=== PATIENT | male | born 1945 | race Caucasian/White ===

== ENCOUNTER 2020-10-21 06:31 | Inpatient (IN) | payer MEDICARE, OTHER ==
[2020-10-21 07:21] LABS: #Lymphocytes 0.8 thou/uL (1.20-3.40); #Monocytes 0.6 thou/uL (0.11-0.59); #Neutrophils 5.9 thou/uL (1.40-6.50); %Basophils 0.1 % (0.0-1.0); %Eosinophils 0.2 % (0.0-10.0); %Lymphocytes 11.1 % (21.0-51.0); %Monocytes 7.7 % (0.0-10.0); Hemoglobin 11.9 g/dL (14.0-18.0); Mean Corpuscular HGB CONC 34.4 g/dL (32.0-36.0); Mean Corpuscular Hemoglobin 31.7 pg (27.0-31.0); Mean Corpuscular Volume 92.2 fL (78.0-98.0); Mean Platelet Volume 6.2 fL (7.4-10.4); Platelet Count 289 thou/uL (130-400); Red Blood Cell (RBC) Count 3.75 mill/uL (4.70-6.10); White Blood Cell (WBC) Count 7.3 thou/uL (4.8-10.8)
[2020-10-21 08:03] LABS: ALT (SGPT) 29 U/L (8-55); AST (SGOT) 27 U/L (5-34); Albumin 3.2 g/dL (3.4-4.8); Alkaline Phosphatase 85 U/L (40-110); Anion Gap 14 mmol/L (10-20); BUN (Urea Nitrogen) 12 mg/dL (8.4-25.7); Bilirubin, Total 0.7 mg/dL (0.2-1.2); Calc. Creatinine Clearance 0 mL/min (70-130); Calcium 8.6 mg/dL (7.8-10.44); Carbon Dioxide 28 mmol/L (23-31); Chloride 90 mmol/L (98-107); Globulin 3.7 g/dL (2.4-3.5); Glucose 104 mg/dL (83-110); Potassium 4.2 mmol/L (3.5-5.1); Protein, Total 6.9 g/dL (5.8-8.1); Sodium 128 mmol/L (136-145)
[2020-10-21 08:17] LABS: INR-International Normal Ratio 2.1; Prothrombin Time 24.4 sec (12.0-14.7)
[2020-10-21 08:18] LABS: PTT 46.6 sec (22.9-36.1)
[2020-10-21] MEDS ORDERED: Cefepime 2 GM VIAL ONE (10:27)
[2020-10-21] MEDS ORDERED: Acetaminophen 325 MG TAB PO PRN (10:56)
[2020-10-21] MEDS ORDERED: Sodium Chloride 0.9% 1,000 ML IV SCH ×2 (11:00→11:48)
[2020-10-21] MEDS ORDERED: Ondansetron ODT 4 MG TAB PO PRN (12:17)
[2020-10-21] MEDS ORDERED: Ondansetron PF 4 MG/2 ML Vial IVP PRN (12:17)
[2020-10-21 13:52] VITALS: BMI 18.5
[2020-10-21 14:17] LABS: Anion Gap 13 mmol/L (10-20); BUN (Urea Nitrogen) 10 mg/dL (8.4-25.7); Calc. Creatinine Clearance 89 mL/min (70-130); Calcium 8.3 mg/dL (7.8-10.44); Carbon Dioxide 29 mmol/L (23-31); Chloride 92 mmol/L (98-107); Glucose 168 mg/dL (83-110); Potassium 3.9 mmol/L (3.5-5.1); Sodium 130 mmol/L (136-145)
[2020-10-21] MEDS ORDERED: Melatonin 3 MG TAB PO PRN (17:46)
[2020-10-21 18:02] LABS: SARS-CoV-2 PCR by NAA Not Detected (NotDetected)
[2020-10-21] MEDS ORDERED: Furosemide 40 MG TAB PO SCH (19:45)
[2020-10-21] MEDS ORDERED: Nitroglycerin 2% Ointment 1 INCH/1 GM Packet ONE (19:58)
[2020-10-21] MEDS ORDERED: Furosemide 40 MG/4 ML VIAL SLOW IVP SCH (20:00)
[2020-10-21] MEDS ORDERED: Nitroglycerin 2% Ointment 1 INCH/1 GM Packet TOP SCH (20:00)
[2020-10-21] MEDS ORDERED: methylPREDNISolone Sod Succ 40 MG VIAL IVP SCH (20:15)
[2020-10-21 20:32] LABS: #Lymphocytes 2.3 thou/uL (1.20-3.40); #Monocytes 0.4 thou/uL (0.11-0.59); #Neutrophils 15.3 thou/uL (1.40-6.50); %Basophils 0.1 % (0.0-1.0); %Eosinophils 0.1 % (0.0-10.0); %Lymphocytes 12.7 % (21.0-51.0); %Monocytes 2.4 % (0.0-10.0); %Neutrophils 84.6 % (42.0-75.0); Hemoglobin 12.4 g/dL (14.0-18.0); Mean Corpuscular HGB CONC 33.5 g/dL (32.0-36.0); Mean Corpuscular Hemoglobin 30.8 pg (27.0-31.0); Mean Corpuscular Volume 91.8 fL (78.0-98.0); Mean Platelet Volume 6.1 fL (7.4-10.4); Platelet Count 425 thou/uL (130-400); RBC Distribution Width 12.1 % (11.5-14.5); Red Blood Cell (RBC) Count 4.02 mill/uL (4.70-6.10); White Blood Cell (WBC) Count 18.1 thou/uL (4.8-10.8)
[2020-10-21 20:44] LABS: Anion Gap 17 mmol/L (10-20); BUN (Urea Nitrogen) 13 mg/dL (8.4-25.7); Calc. Creatinine Clearance 89 mL/min (70-130); Calcium 8.1 mg/dL (7.8-10.44); Carbon Dioxide 23 mmol/L (23-31); Chloride 92 mmol/L (98-107); Glucose 127 mg/dL (83-110); Potassium 4.4 mmol/L (3.5-5.1); Sodium 128 mmol/L (136-145)
[2020-10-21] MEDS ORDERED: Clindamycin/D5W 600 MG in Premix Bag 1 BAG IVPB SCH (20:45)
[2020-10-21 20:50] LABS: Troponin I 0.019 ng/mL (< 0.028)
[2020-10-21] MEDS ORDERED: guaiFENesin ER 600 MG TAB PO SCH (21:00)
[2020-10-21] MEDS ORDERED: Vancomycin 1.5 GRAM/300 ML BAG 1.5 GM in Premix Bag 1 BAG IVPB SCH (21:15)
[2020-10-21 21:19] LABS: CO2 Tension 46.2 mmHg (35.0-45.0); Calcium, Ionized (arterial) 1.11 mmol/L (1.12-1.30); Carboxyhemoglobin (COHb) 0.6 gm% (0.0-3.0); Hemoglobin (Hb) 11.8 g/dL (14.0-18.0); O2 Tension (PaO2), arterial 61.1 mmHg (> 70.0); Potassium - ABG Lab 4.07 mmol/L (3.70-5.30); pH, Arterial 7.44 (7.35-7.45)
[2020-10-21 21:20] LABS: Puncture Site LRA
[2020-10-21] MEDS: Piperacillin/Tazobactam 3.375 GM in Sodium Chloride 0.9% 100 ML IVPB SCH (21:52)
[2020-10-21 23:17] LABS: Lactic Acid 1.2 mmol/L (0.5-2.2)
[2020-10-21] MEDS ORDERED: Melatonin 3 MG TAB PER TUBE PRN (23:37)
[2020-10-21] MEDS ORDERED: GUAIFENESIN SF SOLN 200 MG/10 ML UDCUP PO PRN (23:58)
[2020-10-22] MEDS ORDERED: GUAIFENESIN SF SOLN 200 MG/10 ML UDCUP PER TUBE PRN (00:15)
[2020-10-22] MEDS: Piperacillin/Tazobactam 3.375 GM in Sodium Chloride 0.9% 100 ML IVPB SCH ×4 (04:31→21:47)
[2020-10-22] MEDS: Vancomycin 1 GM in Premix Bag 1 BAG IVPB SCH ×3 (05:42→21:47)
[2020-10-22 07:23] LABS: Band 59 % (5-11); Lymphocytes 3 % (21-51); MDiff Complete? YES; Mean Corpuscular HGB CONC 32.9 g/dL (32.0-36.0); Mean Corpuscular Hemoglobin 30.2 pg (27.0-31.0); Mean Corpuscular Volume 91.9 fL (78.0-98.0); Mean Platelet Volume 6.3 fL (7.4-10.4); Metamyelocyte 1 % (0-0); Monocytes 3 % (0-10); Neutrophil 31 % (42-75); Platelet Count 256 thou/uL (130-400); Platelet Morphology Comment Appears Adequate; Polychromasia SLIGHT = 2-3 cells (100X) (0-2/hpf); Reactive Lymphocytes 3 % (0-10); Red Blood Cell (RBC) Count 3.63 mill/uL (4.70-6.10); Reflex for Review?? YES; Vacuoles MODERATE; White Blood Cell (WBC) Count 13.6 thou/uL (4.8-10.8)
[2020-10-22] MEDS: Saccharomyces boulardii 250 MG CAP PER TUBE SCH (08:14)
[2020-10-22] MEDS ORDERED: methylPREDNISolone Sod Succ 40 MG VIAL IVP SCH ×2 (09:00→10:30)
[2020-10-22] MEDS ORDERED: Saccharomyces boulardii 250 MG CAP PO SCH (09:00)
[2020-10-22 09:50] LABS: Prothrombin Time 31.6 sec (12.0-14.7)
[2020-10-22] MEDS: Warfarin Sodium 5 MG TAB PER TUBE SCH (16:14)
[2020-10-22] MEDS ORDERED: Warfarin Sodium 5 MG TAB PO SCH (17:00)
[2020-10-22 21:20] LABS: Vancomycin, Trough 15.7 ug/mL
[2020-10-23] MEDS: Vancomycin 1 GM in Premix Bag 1 BAG IVPB SCH (05:14)
[2020-10-23] MEDS: Piperacillin/Tazobactam 3.375 GM in Sodium Chloride 0.9% 100 ML IVPB SCH ×4 (05:14→22:34)
[2020-10-23 06:21] LABS: #Lymphocytes 0.5 thou/uL (1.20-3.40); #Monocytes 0.3 thou/uL (0.11-0.59); #Neutrophils 14.6 thou/uL (1.40-6.50); %Lymphocytes 3.2 % (21.0-51.0); %Neutrophils 94.7 % (42.0-75.0); Mean Corpuscular HGB CONC 33.1 g/dL (32.0-36.0); Mean Corpuscular Hemoglobin 30.1 pg (27.0-31.0); Mean Corpuscular Volume 90.9 fL (78.0-98.0); Mean Platelet Volume 6.5 fL (7.4-10.4); Platelet Count 264 thou/uL (130-400); Red Blood Cell (RBC) Count 3.64 mill/uL (4.70-6.10); White Blood Cell (WBC) Count 15.4 thou/uL (4.8-10.8)
[2020-10-23 06:42] LABS: Anion Gap 12 mmol/L (10-20); BUN (Urea Nitrogen) 15 mg/dL (8.4-25.7); Calc. Creatinine Clearance 101 mL/min (70-130); Calcium 8.7 mg/dL (7.8-10.44); Carbon Dioxide 33 mmol/L (23-31); Chloride 87 mmol/L (98-107); Glucose 128 mg/dL (83-110); Potassium 4.2 mmol/L (3.5-5.1); Sodium 128 mmol/L (136-145)
[2020-10-23 09:20] LABS: INR-International Normal Ratio 2.8; Prothrombin Time 30.3 sec (12.0-14.7)
[2020-10-23] MEDS: Saccharomyces boulardii 250 MG CAP PER TUBE SCH (10:39)
[2020-10-23] MEDS: methylPREDNISolone Sod Succ 40 MG VIAL IVP SCH (10:39)
[2020-10-23] MEDS: Warfarin Sodium 5 MG TAB PER TUBE SCH (17:15)
[2020-10-24 04:02] LABS: #Lymphocytes 0.5 thou/uL (1.20-3.40); #Monocytes 0.3 thou/uL (0.11-0.59); #Neutrophils 10.6 thou/uL (1.40-6.50); %Basophils 0.1 % (0.0-1.0); %Lymphocytes 4.2 % (21.0-51.0); %Monocytes 2.8 % (0.0-10.0); %Neutrophils 92.9 % (42.0-75.0); Hemoglobin 10.8 g/dL (14.0-18.0); Mean Corpuscular HGB CONC 33.9 g/dL (32.0-36.0); Mean Corpuscular Hemoglobin 30.9 pg (27.0-31.0); Mean Corpuscular Volume 91.1 fL (78.0-98.0); Mean Platelet Volume 6.4 fL (7.4-10.4); Platelet Count 254 thou/uL (130-400); RBC Distribution Width 12.1 % (11.5-14.5); White Blood Cell (WBC) Count 11.4 thou/uL (4.8-10.8)
[2020-10-24] MEDS: Piperacillin/Tazobactam 3.375 GM in Sodium Chloride 0.9% 100 ML IVPB SCH ×2 (04:40→09:55)
[2020-10-24] MEDS: Acetaminophen 650 MG/20.3 ML UDCUP PER TUBE PRN ×2 (05:22→19:56)
[2020-10-24 09:32] LABS: INR-International Normal Ratio 3.1
[2020-10-24] MEDS: Saccharomyces boulardii 250 MG CAP PER TUBE SCH (09:55)
[2020-10-24] MEDS: methylPREDNISolone Sod Succ 40 MG VIAL IVP SCH (09:55)
[2020-10-24] MEDS: Warfarin Sodium 5 MG TAB PER TUBE SCH (19:23)
[2020-10-24] MEDS: Amoxicillin/Potassium Clav 600 mg/5 ml Oral Suspension PO SCH (19:56)
[2020-10-25] MEDS: Acetaminophen 650 MG/20.3 ML UDCUP PER TUBE PRN (03:12)
[2020-10-25 08:28] VITALS: BP 109/61; TEMP 98
[2020-10-25] MEDS: methylPREDNISolone Sod Succ 40 MG VIAL IVP SCH (09:27)
[2020-10-25] MEDS: Saccharomyces boulardii 250 MG CAP PER TUBE SCH (09:27)
[2020-10-25] MEDS: Amoxicillin/Potassium Clav 600 mg/5 ml Oral Suspension PO SCH (09:27)
[2020-10-25 09:39] LABS: Prothrombin Time 46.2 sec (12.0-14.7)
[2020-10-25 09:46] LABS: INR-International Normal Ratio 4.8
== END 2020-10-25 12:35 | disposition home or self-care (01) | DRG 177 ==
LOC: ERS 06:31 → ONC 11:58 → CCU 21:13 → ONC 10-22 16:50
PROVIDERS: ADMIT Internal Medicine; ATTEND Internal Medicine
DX: J69.0 Pneumonitis due to inhalation of food and vomit (principal); J96.01 Acute respiratory failure with hypoxia; E87.1 Hypo-osmolality and hyponatremia; Z20.822 Contact with and (suspected) exposure to COVID-19; I95.1 Orthostatic hypotension; I10 Essential (primary) hypertension; I48.0 Paroxysmal atrial fibrillation; C76.0 Malignant neoplasm of head, face and neck; G47.30 Sleep apnea, unspecified; B18.2 Chronic viral hepatitis C; K21.9 Gastro-esophageal reflux disease without esophagitis; Z92.3 Personal history of irradiation; Z92.21 Personal history of antineoplastic chemotherapy; Z79.02 Long term (current) use of antithrombotics/antiplatelets; Z79.899 Other long term (current) drug therapy; Z85.810 Personal history of malignant neoplasm of tongue; Z90.49 Acquired absence of other specified parts of digestive tract
CPT/HCPCS: 36415; 36600; 71045; 80048; 80053; 80202; 82805; 83605; 83880; 84484; 85025; 85060; 85610; 85730; 87040; 87070; 87205; 87635; 93005; 93010; 94640; 96374; J0692; J1940; J1956; J2543; J2920; J3370; J3490; J7620; U0003; U0005

== ENCOUNTER 2020-10-27 21:35 | Inpatient (IN) | payer MEDICARE ==
[2020-10-27 22:30] LABS: Mean Corpuscular HGB CONC 34.2 g/dL (32.0-36.0); Mean Corpuscular Volume 93.5 fL (78.0-98.0); Mean Platelet Volume 7.2 fL (7.4-10.4); Platelet Count 265 thou/uL (130-400); RBC Distribution Width 12.6 % (11.5-14.5); Red Blood Cell (RBC) Count 3.76 mill/uL (4.70-6.10); White Blood Cell (WBC) Count 10.3 thou/uL (4.8-10.8)
[2020-10-27 22:45] LABS: Band 4 % (5-11); Lymphocytes 6 % (21-51); MDiff Complete? YES; Monocytes 11 % (0-10); Neutrophil 78 % (42-75); Reactive Lymphocytes 1 % (0-10)
[2020-10-27 23:02] LABS: INR-International Normal Ratio 1.9; PTT 40.1 sec (22.9-36.1); Prothrombin Time 22.2 sec (12.0-14.7)
[2020-10-27 23:47] LABS: Calcium 8.1 mg/dL (7.8-10.44); Chloride 94 mmol/L (98-107); Potassium 3.9 mmol/L (3.5-5.1); Sodium 133 mmol/L (136-145)
[2020-10-27 23:48] LABS: Glucose 127 mg/dL (83-110)
[2020-10-27 23:50] LABS: Anion Gap 14 mmol/L (10-20); Bilirubin, Total 0.8 mg/dL (0.2-1.2); Carbon Dioxide 29 mmol/L (23-31)
[2020-10-27 23:51] LABS: Alkaline Phosphatase 63 U/L (40-110); Calc. Creatinine Clearance 0 mL/min (70-130)
[2020-10-27 23:52] LABS: BUN (Urea Nitrogen) 16 mg/dL (8.4-25.7)
[2020-10-27 23:53] LABS: AST (SGOT) 22 U/L (5-34)
[2020-10-27 23:54] LABS: ALT (SGPT) 47 U/L (8-55)
[2020-10-28 01:30] LABS: Bilirubin Negative (Negative); Blood, Urine Negative (Negative); Clarity Clear (Clear); Glucose, Urine (Dipstick) Normal (Negative); Ketone, Urine Negative (Negative); Leukocyte Negative Leu/uL (Negative); Nitrite Negative (Negative); Protein, Urine (Dipstick) Negative (Neg-Trace); Specific Gravity, Urine 1.008 (1.002-1.036); Urobilinogen Normal mg/dL (Less than 2); pH, Urine 7.5 (5.0-9.0)
[2020-10-28] MEDS ORDERED: Ondansetron PF 4 MG/2 ML Vial IVP PRN (09:13)
[2020-10-28] MEDS ORDERED: Albuterol 200 PUFF (6.7GM INHALER) INH PRN (09:15)
[2020-10-28] MEDS ORDERED: cefTRIAXone\\ROCEPHIN 1 GM in Sodium Chloride 0.9% 100 ML IVPB SCH (10:00)
[2020-10-28] MEDS ORDERED: Acetaminophen 325 MG/10.15 ML UDCUP ONE (10:18)
[2020-10-28] MEDS ORDERED: cefTRIAXone\\ROCEPHIN 1 GM VIAL ONE (10:19)
[2020-10-28] MEDS: Acetaminophen 650 MG/20.3 ML UDCUP PER TUBE PRN (10:27)
[2020-10-28] MEDS ORDERED: Azithromycin 500 MG in Sodium Chloride 0.9% 250 ML 250 ML IVPB SCH (11:00)
[2020-10-28 11:19] LABS: SARS-CoV-2 PCR by NAA Not Detected (NotDetected)
[2020-10-28] MEDS ORDERED: Azithromycin 500 MG VIAL ONE (11:46)
[2020-10-28] MEDS: Warfarin Sodium 5 MG TAB PO SCH (16:48)
[2020-10-29] MEDS ORDERED: Melatonin 3 MG TAB PO PRN (00:23)
[2020-10-29] MEDS ORDERED: diphenhydrAMINE 25 MG CAP PO PRN (00:25)
[2020-10-29] MEDS ORDERED: Propofol 1,000 MG/100 ML VIAL IV ONE ×2 (01:16→16:48)
[2020-10-29] MEDS ORDERED: Lorazepam 2 MG/ML VIAL ONE (01:17)
[2020-10-29] MEDS ORDERED: Propofol BOLUS 1,000 MG/100 ML VIAL IV PRN (01:30)
[2020-10-29] MEDS ORDERED: Lorazepam 2 MG/ML VIAL SLOW IVP PRN (01:30)
[2020-10-29] MEDS ORDERED: Ventilator Sedation Protocol 1 EACH FS SCH (01:30)
[2020-10-29] MEDS ORDERED: Fentanyl CADD 100 ML IV SCH (01:30)
[2020-10-29] MEDS ORDERED: Fentanyl BOLUS 250 ML IVPB PRN (01:30)
[2020-10-29] MEDS ORDERED: DISCONTINUE PREVIOUS NARCOTIC PAIN MEDICATIONS AND BENZODIAZEPINES FS SCH (01:30)
[2020-10-29] MEDS ORDERED: Fentanyl CADD 0 ML ONE (01:32)
[2020-10-29] MEDS ORDERED: Fentanyl CADD 100 ML ONE (01:33)
[2020-10-29 01:34] LABS: Actual Bicarbonate (HCO3a) 27.6 mEq/L (22-28); Base Excess (BEa) 3.3 mEq/L (-2.0 to +3.0); CO2 Tension 41.1 mmHg (35.0-45.0); Calcium, Ionized (arterial) 1.12 mmol/L (1.12-1.30); Carboxyhemoglobin (COHb) 0.6 gm% (0.0-3.0); Hemoglobin (Hb) 12.2 g/dL (14.0-18.0); O2 Tension (PaO2), arterial 394.4 mmHg (> 70.0); Potassium - ABG Lab 4.01 mmol/L (3.70-5.30); pH, Arterial 7.45 (7.35-7.45)
[2020-10-29 01:40] LABS: ALV-art Gradient 267.225 mmHg (0-20); Puncture Site RRA
[2020-10-29 02:03] LABS: #Eosinphils 0.1 thou/uL (0.0-0.7); #Lymphocytes 1.3 thou/uL (1.20-3.40); #Monocytes 0.5 thou/uL (0.11-0.59); #Neutrophils 14.1 thou/uL (1.40-6.50); %Basophils 0.1 % (0.0-1.0); %Eosinophils 0.3 % (0.0-10.0); %Lymphocytes 8.3 % (21.0-51.0); %Monocytes 3.4 % (0.0-10.0); Hemoglobin 12.2 g/dL (14.0-18.0); Mean Corpuscular HGB CONC 32.7 g/dL (32.0-36.0); Mean Corpuscular Hemoglobin 30.6 pg (27.0-31.0); Mean Corpuscular Volume 93.4 fL (78.0-98.0); Mean Platelet Volume 6.9 fL (7.4-10.4); Platelet Count 253 thou/uL (130-400); RBC Distribution Width 12.6 % (11.5-14.5); Red Blood Cell (RBC) Count 3.99 mill/uL (4.70-6.10); White Blood Cell (WBC) Count 16.1 thou/uL (4.8-10.8)
[2020-10-29] MEDS ORDERED: Norepinephrine 8 MG/0.9% NS 250 ML ONE (02:25)
[2020-10-29 02:28] LABS: Albumin 2.9 g/dL (3.4-4.8)
[2020-10-29 02:29] LABS: Chloride 96 mmol/L (98-107); Potassium 5.1 mmol/L (3.5-5.1); Sodium 132 mmol/L (136-145)
[2020-10-29 02:30] LABS: Calcium 8.5 mg/dL (7.8-10.44); Glucose 141 mg/dL (83-110)
[2020-10-29 02:31] LABS: Globulin 3.9 g/dL (2.4-3.5); Protein, Total 6.8 g/dL (5.8-8.1)
[2020-10-29 02:32] LABS: Bilirubin, Total 0.8 mg/dL (0.2-1.2); Carbon Dioxide 23 mmol/L (23-31)
[2020-10-29 02:33] LABS: Alkaline Phosphatase 69 U/L (40-110)
[2020-10-29 02:34] LABS: Calc. Creatinine Clearance 93 mL/min (70-130)
[2020-10-29 02:35] LABS: BUN (Urea Nitrogen) 14 mg/dL (8.4-25.7)
[2020-10-29 02:36] LABS: ALT (SGPT) 54 U/L (8-55); AST (SGOT) 48 U/L (5-34)
[2020-10-29 02:38] LABS: Anion Gap 18 mmol/L (10-20)
[2020-10-29] MEDS ORDERED: Norepinephrine 8 MG/0.9% NS 250 ML IVPB SCH (02:45)
[2020-10-29] MEDS ORDERED: Sodium Chloride 0.9% 1,000 ML IV SCH (03:00)
[2020-10-29] MEDS: Sodium Chloride 0.9% 1,000 ML IV SCH ×3 (03:00→17:06)
[2020-10-29 03:43] LABS: INR-International Normal Ratio 2.4; PTT 39.6 sec (22.9-36.1); Prothrombin Time 26.8 sec (12.0-14.7)
[2020-10-29] MEDS ORDERED: Fentanyl 100 MCG/2 ML VIAL SLOW IVP SCH (06:00)
[2020-10-29 06:39] LABS: INR-International Normal Ratio 2.4; Prothrombin Time 26.8 sec (12.0-14.7)
[2020-10-29 06:51] LABS: Anion Gap 13 mmol/L (10-20); BUN (Urea Nitrogen) 16 mg/dL (8.4-25.7); Calc. Creatinine Clearance 95 mL/min (70-130); Carbon Dioxide 28 mmol/L (23-31); Chloride 98 mmol/L (98-107); Glucose 90 mg/dL (83-110); Potassium 4.5 mmol/L (3.5-5.1); Sodium 134 mmol/L (136-145)
[2020-10-29 07:08] LABS: Hemoglobin 10.6 g/dL (14.0-18.0); Mean Corpuscular HGB CONC 33.1 g/dL (32.0-36.0); Mean Corpuscular Hemoglobin 30.5 pg (27.0-31.0); Mean Corpuscular Volume 92.2 fL (78.0-98.0); Mean Platelet Volume 6.6 fL (7.4-10.4); Platelet Count 278 thou/uL (130-400); RBC Distribution Width 12.4 % (11.5-14.5); Red Blood Cell (RBC) Count 3.48 mill/uL (4.70-6.10); White Blood Cell (WBC) Count 17.4 thou/uL (4.8-10.8)
[2020-10-29] MEDS ORDERED: Enoxaparin Sodium 40 MG/0.4 ML SYRINGE SC SCH (09:00)
[2020-10-29] MEDS ORDERED: Vancomycin 1 GM/200 ML BAG ONE (10:00)
[2020-10-29 10:03] LABS: Band 14 % (5-11); Lymphocytes 2 % (21-51); MDiff Complete? YES; Monocytes 7 % (0-10); Myelocyte 1 % (0-0); Neutrophil 76 % (42-75); Platelet Morphology Comment Appears Adequate; RBC Morphology Normal
[2020-10-29] MEDS: Vancomycin 1 GM in Premix Bag 1 BAG IVPB SCH ×2 (10:09→20:13)
[2020-10-29] MEDS: Pantoprazole 40 MG GRANULES PACKET PO SCH (10:10)
[2020-10-29] MEDS ORDERED: Albumin 25% 25 GM/100 ML BOT IVPB SCH (11:15)
[2020-10-29] MEDS ORDERED: Sodium Chloride 0.9% 10 ML ONE (11:44)
[2020-10-29] MEDS ORDERED: Dextrose 50% Abboject 50 ML SYRINGE ONE (12:31)
[2020-10-29] MEDS ORDERED: Sodium Chloride 0.9% 50 ML ONE (12:42)
[2020-10-29] MEDS: Hydrocortisone Sod Succ/PF 100 mg/2 ml Vial IVP SCH ×3 (13:17→23:14)
[2020-10-29] MEDS: MEROPENEM 1 GM/50 ML 1 GM in Premix Bag 1 BAG IVPB SCH ×2 (13:20→21:35)
[2020-10-29] MEDS ORDERED: Meropenem 1 GM in Sodium Chloride 0.9% 100 ML IVPB SCH (14:00)
[2020-10-29] MEDS: Propofol 1,000 MG/100 ML VIAL IV PRN (16:49)
[2020-10-29] MEDS: Warfarin Sodium 5 MG TAB PO SCH (17:05)
[2020-10-29] MEDS ORDERED: Hydrocortisone Sod Succ/PF 100 mg/2 ml Vial ONE (17:08)
[2020-10-29] MEDS ORDERED: EPINEPHrine 1 MG/10 ML Abboject SYRINGE ONE (17:25)
[2020-10-29] MEDS ORDERED: Atropine Sulfate 1 mg/10 ml Syringe ONE (17:25)
[2020-10-30] MEDS: Sodium Chloride 0.9% 1,000 ML IV SCH ×4 (00:18→19:29)
[2020-10-30 02:30] LABS: #Lymphocytes 0.3 thou/uL (1.20-3.40); #Monocytes 0.2 thou/uL (0.11-0.59); #Neutrophils 7.6 thou/uL (1.40-6.50); %Lymphocytes 3.6 % (21.0-51.0); %Neutrophils 94.3 % (42.0-75.0); Hemoglobin 8.8 g/dL (14.0-18.0); Mean Corpuscular HGB CONC 33.6 g/dL (32.0-36.0); Mean Corpuscular Volume 92.1 fL (78.0-98.0); Mean Platelet Volume 6.3 fL (7.4-10.4); Platelet Count 165 thou/uL (130-400); RBC Distribution Width 12.5 % (11.5-14.5); Red Blood Cell (RBC) Count 2.85 mill/uL (4.70-6.10)
[2020-10-30 02:33] LABS: INR-International Normal Ratio 3.9; Prothrombin Time 39.4 sec (12.0-14.7)
[2020-10-30 02:56] LABS: Anion Gap 10 mmol/L (10-20); BUN (Urea Nitrogen) 13 mg/dL (8.4-25.7); Calc. Creatinine Clearance 118 mL/min (70-130); Calcium 8.1 mg/dL (7.8-10.44); Carbon Dioxide 29 mmol/L (23-31); Chloride 100 mmol/L (98-107); Glucose 132 mg/dL (83-110); Potassium 3.7 mmol/L (3.5-5.1); Sodium 135 mmol/L (136-145)
[2020-10-30] MEDS: Hydrocortisone Sod Succ/PF 100 mg/2 ml Vial IVP SCH (05:11)
[2020-10-30] MEDS: MEROPENEM 1 GM/50 ML 1 GM in Premix Bag 1 BAG IVPB SCH ×3 (05:12→21:27)
[2020-10-30] MEDS: Propofol 1,000 MG/100 ML VIAL IV PRN (05:12)
[2020-10-30] MEDS: Pantoprazole 40 MG GRANULES PACKET PO SCH (08:22)
[2020-10-30] MEDS: Vancomycin 1 GM in Premix Bag 1 BAG IVPB SCH (11:16)
[2020-10-30] MEDS: methylPREDNISolone Sod Succ 40 MG VIAL IVP SCH ×3 (11:22→23:24)
[2020-10-30] MEDS: Acetaminophen 650 MG/20.3 ML UDCUP PER TUBE PRN (11:24)
[2020-10-30] MEDS: Morphine 2 MG/ML VIAL SLOW IVP PRN ×3 (12:40→23:28)
[2020-10-30] MEDS ORDERED: hydrALAZINE 20 MG/ML VIAL SLOW IVP PRN (13:58)
[2020-10-31] MEDS: Sodium Chloride 0.9% 1,000 ML IV SCH ×4 (02:45→18:16)
[2020-10-31 03:29] LABS: #Lymphocytes 0.3 thou/uL (1.20-3.40); #Monocytes 0.1 thou/uL (0.11-0.59); #Neutrophils 8.5 thou/uL (1.40-6.50); %Eosinophils 0.1 % (0.0-10.0); %Lymphocytes 3.6 % (21.0-51.0); %Monocytes 1.2 % (0.0-10.0); %Neutrophils 95.1 % (42.0-75.0); Hemoglobin 9.6 g/dL (14.0-18.0); Mean Corpuscular HGB CONC 33.3 g/dL (32.0-36.0); Mean Corpuscular Volume 93.2 fL (78.0-98.0); Mean Platelet Volume 6.6 fL (7.4-10.4); Platelet Count 162 thou/uL (130-400); RBC Distribution Width 12.8 % (11.5-14.5); Red Blood Cell (RBC) Count 3.09 mill/uL (4.70-6.10); White Blood Cell (WBC) Count 8.9 thou/uL (4.8-10.8)
[2020-10-31 03:36] LABS: Prothrombin Time 58.6 sec (12.0-14.7)
[2020-10-31 03:37] LABS: INR-International Normal Ratio 6.5
[2020-10-31 03:48] LABS: Anion Gap 11 mmol/L (10-20); BUN (Urea Nitrogen) 16 mg/dL (8.4-25.7); Calc. Creatinine Clearance 112 mL/min (70-130); Calcium 8.3 mg/dL (7.8-10.44); Carbon Dioxide 28 mmol/L (23-31); Chloride 105 mmol/L (98-107); Glucose 161 mg/dL (83-110); Potassium 3.7 mmol/L (3.5-5.1); Sodium 140 mmol/L (136-145)
[2020-10-31] MEDS: MEROPENEM 1 GM/50 ML 1 GM in Premix Bag 1 BAG IVPB SCH ×3 (05:13→21:55)
[2020-10-31] MEDS: methylPREDNISolone Sod Succ 40 MG VIAL IVP SCH ×4 (05:14→23:25)
[2020-10-31] MEDS: Pantoprazole 40 MG GRANULES PACKET PO SCH (08:09)
[2020-10-31] MEDS: Acetaminophen 650 MG/20.3 ML UDCUP PER TUBE PRN (08:19)
[2020-10-31] MEDS ORDERED: Warfarin Sodium 5 MG TAB PO SCH (17:00)
[2020-10-31] MEDS: Morphine 2 MG/ML VIAL SLOW IVP PRN (23:20)
[2020-11-01 03:28] LABS: #Lymphocytes 0.3 thou/uL (1.20-3.40); #Monocytes 0.2 thou/uL (0.11-0.59); #Neutrophils 11.8 thou/uL (1.40-6.50); %Basophils 0.1 % (0.0-1.0); %Eosinophils 0.1 % (0.0-10.0); %Lymphocytes 2.7 % (21.0-51.0); %Monocytes 1.9 % (0.0-10.0); %Neutrophils 95.2 % (42.0-75.0); Hemoglobin 9.9 g/dL (14.0-18.0); Mean Corpuscular HGB CONC 32.9 g/dL (32.0-36.0); Mean Corpuscular Hemoglobin 30.8 pg (27.0-31.0); Mean Corpuscular Volume 93.5 fL (78.0-98.0); Mean Platelet Volume 6.5 fL (7.4-10.4); Platelet Count 176 thou/uL (130-400); RBC Distribution Width 12.9 % (11.5-14.5); Red Blood Cell (RBC) Count 3.21 mill/uL (4.70-6.10); White Blood Cell (WBC) Count 12.4 thou/uL (4.8-10.8)
[2020-11-01 03:35] LABS: INR-International Normal Ratio 3.6; Prothrombin Time 36.5 sec (12.0-14.7)
[2020-11-01] MEDS: Sodium Chloride 0.9% 1,000 ML IV SCH ×3 (03:44→23:15)
[2020-11-01 03:46] LABS: Anion Gap 11 mmol/L (10-20); BUN (Urea Nitrogen) 15 mg/dL (8.4-25.7); Calc. Creatinine Clearance 121 mL/min (70-130); Calcium 8.2 mg/dL (7.8-10.44); Carbon Dioxide 29 mmol/L (23-31); Chloride 103 mmol/L (98-107); Glucose 156 mg/dL (83-110); Potassium 3.8 mmol/L (3.5-5.1); Sodium 139 mmol/L (136-145)
[2020-11-01] MEDS: methylPREDNISolone Sod Succ 40 MG VIAL IVP SCH ×3 (06:01→18:20)
[2020-11-01] MEDS: MEROPENEM 1 GM/50 ML 1 GM in Premix Bag 1 BAG IVPB SCH ×3 (06:01→22:45)
[2020-11-01] MEDS: Pantoprazole 40 MG GRANULES PACKET PO SCH (08:58)
[2020-11-01] MEDS: Acetaminophen 650 MG/20.3 ML UDCUP PER TUBE PRN (11:17)
[2020-11-02] MEDS: methylPREDNISolone Sod Succ 40 MG VIAL IVP SCH ×4 (00:08→20:34)
[2020-11-02 04:42] LABS: INR-International Normal Ratio 2.4; Prothrombin Time 26.3 sec (12.0-14.7)
[2020-11-02 04:54] LABS: Hemoglobin 11.3 g/dL (14.0-18.0); Mean Corpuscular HGB CONC 32.8 g/dL (32.0-36.0); Mean Corpuscular Hemoglobin 30.5 pg (27.0-31.0); Mean Corpuscular Volume 92.7 fL (78.0-98.0); Mean Platelet Volume 6.6 fL (7.4-10.4); Platelet Count 215 thou/uL (130-400); Red Blood Cell (RBC) Count 3.71 mill/uL (4.70-6.10); White Blood Cell (WBC) Count 18.5 thou/uL (4.8-10.8)
[2020-11-02 04:57] LABS: Anion Gap 11 mmol/L (10-20); BUN (Urea Nitrogen) 15 mg/dL (8.4-25.7); Calc. Creatinine Clearance 118 mL/min (70-130); Calcium 8.5 mg/dL (7.8-10.44); Carbon Dioxide 34 mmol/L (23-31); Chloride 97 mmol/L (98-107); Glucose 141 mg/dL (83-110); Potassium 3.8 mmol/L (3.5-5.1); Sodium 138 mmol/L (136-145)
[2020-11-02] MEDS: MEROPENEM 1 GM/50 ML 1 GM in Premix Bag 1 BAG IVPB SCH (05:05)
[2020-11-02 05:12] LABS: Band 20 % (5-11); Lymphocytes 1 % (21-51); MDiff Complete? YES; Monocytes 5 % (0-10); Neutrophil 74 % (42-75); Platelet Morphology Comment Appears Adequate
[2020-11-02] MEDS: Pantoprazole 40 MG GRANULES PACKET PO SCH (07:58)
[2020-11-02] MEDS: Sodium Chloride 0.9% 1,000 ML IV SCH (07:58)
[2020-11-02] MEDS ORDERED: Meropenem 1 GM in Sodium Chloride 0.9% 100 ML IVPB SCH (14:00)
[2020-11-02] MEDS: Carvedilol 3.125 MG TAB PO SCH (16:39)
[2020-11-02] MEDS: Cefdinir 300 MG CAP PO SCH (20:33)
[2020-11-03] MEDS: Carvedilol 3.125 MG TAB PO SCH ×2 (08:31→16:39)
[2020-11-03] MEDS: methylPREDNISolone Sod Succ 40 MG VIAL IVP SCH ×2 (08:31→20:27)
[2020-11-03] MEDS: Pantoprazole 40 MG GRANULES PACKET PO SCH (08:32)
[2020-11-03] MEDS: Cefdinir 300 MG CAP PO SCH ×2 (08:32→20:27)
[2020-11-03] MEDS: Albuterol Sulfate 2.5 mg/0.5 ml Neb ONE (14:45)
[2020-11-03] MEDS: Warfarin Sodium 5 MG TAB PO SCH (16:40)
[2020-11-04 07:27] LABS: INR-International Normal Ratio 1.4; Prothrombin Time 17.7 sec (12.0-14.7)
[2020-11-04] MEDS: methylPREDNISolone Sod Succ 40 MG VIAL IVP SCH ×2 (08:39→20:07)
[2020-11-04] MEDS: Carvedilol 3.125 MG TAB PO SCH ×2 (08:40→16:31)
[2020-11-04] MEDS: Cefdinir 300 MG CAP PO SCH ×2 (08:40→20:07)
[2020-11-04] MEDS: Pantoprazole 40 MG GRANULES PACKET PO SCH (08:41)
[2020-11-04] MEDS: Acetaminophen 650 MG/20.3 ML UDCUP PER TUBE PRN (08:51)
[2020-11-05 04:42] LABS: INR-International Normal Ratio 1.7; Prothrombin Time 20.6 sec (12.0-14.7)
[2020-11-05] MEDS: Carvedilol 3.125 MG TAB PO SCH ×2 (07:42→16:43)
[2020-11-05] MEDS: methylPREDNISolone Sod Succ 40 MG VIAL IVP SCH ×2 (08:48→20:59)
[2020-11-05] MEDS: Cefdinir 300 MG CAP PO SCH ×2 (08:48→20:59)
[2020-11-05] MEDS: Pantoprazole 40 MG GRANULES PACKET PO SCH (08:57)
[2020-11-05] MEDS ORDERED: Ondansetron PF 4 MG/2 ML Vial ONE (09:24)
[2020-11-05] MEDS ORDERED: Ketamine 50 MG/ML (10ML VIAL) ONE (11:47)
[2020-11-05] MEDS ORDERED: Fentanyl 100 MCG/2 ML VIAL ONE (11:57)
[2020-11-05] MEDS ORDERED: Lidocaine 1% w/Epinephrine 1:100K 20 ML VIAL ONE (12:03)
[2020-11-05] MEDS ORDERED: Ondansetron HCl/PF 4 MG/2 ML Vial IVP PRN (12:59)
[2020-11-05] MEDS ORDERED: Promethazine HCl 25 MG/ML VIAL IM PRN (12:59)
[2020-11-05] MEDS ORDERED: Promethazine HCl 25 MG/ML VIAL SLOW IVP PRN (12:59)
[2020-11-05] MEDS: Warfarin Sodium 5 MG TAB PO SCH ×2 (14:55→16:45)
[2020-11-05] MEDS: Acetaminophen 650 MG/20.3 ML UDCUP PER TUBE PRN (17:10)
[2020-11-06 04:35] LABS: Hemoglobin 10.6 g/dL (14.0-18.0); Mean Corpuscular HGB CONC 32.8 g/dL (32.0-36.0); Mean Corpuscular Hemoglobin 31.5 pg (27.0-31.0); Mean Corpuscular Volume 96.2 fL (78.0-98.0); Mean Platelet Volume 7.9 fL (7.4-10.4); Platelet Count 137 thou/uL (130-400); RBC Distribution Width 12.9 % (11.5-14.5); Red Blood Cell (RBC) Count 3.38 mill/uL (4.70-6.10); White Blood Cell (WBC) Count 9.3 thou/uL (4.8-10.8)
[2020-11-06 04:36] LABS: Band 3 % (5-11); Lymphocytes 3 % (21-51); MDiff Complete? YES; Monocytes 2 % (0-10); Neutrophil 92 % (42-75)
[2020-11-06 04:38] LABS: Anion Gap 11 mmol/L (10-20); BUN (Urea Nitrogen) 36 mg/dL (8.4-25.7); Calc. Creatinine Clearance 96 mL/min (70-130); Calcium 8.2 mg/dL (7.8-10.44); Carbon Dioxide 34 mmol/L (23-31); Chloride 102 mmol/L (98-107); Glucose 152 mg/dL (83-110); Potassium 4.1 mmol/L (3.5-5.1); Sodium 143 mmol/L (136-145)
[2020-11-06] MEDS: Pantoprazole 40 MG GRANULES PACKET PO SCH (09:18)
[2020-11-06] MEDS: Cefdinir 300 MG CAP PO SCH ×2 (09:18→21:21)
[2020-11-06] MEDS: methylPREDNISolone Sod Succ 40 MG VIAL IVP SCH ×2 (09:18→21:21)
[2020-11-06] MEDS: Carvedilol 3.125 MG TAB PO SCH ×2 (13:59→17:08)
[2020-11-06] MEDS: Warfarin Sodium 5 MG TAB PO SCH (17:08)
[2020-11-07 04:55] LABS: INR-International Normal Ratio 2.7; Prothrombin Time 29.5 sec (12.0-14.7)
[2020-11-07 05:03] LABS: Band 22 % (5-11); Hemoglobin 10.1 g/dL (14.0-18.0); Lymphocytes 3 % (21-51); MDiff Complete? YES; Mean Corpuscular HGB CONC 32.6 g/dL (32.0-36.0); Mean Corpuscular Hemoglobin 30.7 pg (27.0-31.0); Mean Corpuscular Volume 94.3 fL (78.0-98.0); Mean Platelet Volume 8.4 fL (7.4-10.4); Monocytes 2 % (0-10); Neutrophil 73 % (42-75); Platelet Count 139 thou/uL (130-400); White Blood Cell (WBC) Count 10.9 thou/uL (4.8-10.8)
[2020-11-07 05:05] LABS: Anion Gap 9 mmol/L (10-20); BUN (Urea Nitrogen) 46 mg/dL (8.4-25.7); Calc. Creatinine Clearance 79 mL/min (70-130); Calcium 8.6 mg/dL (7.8-10.44); Carbon Dioxide 37 mmol/L (23-31); Chloride 97 mmol/L (98-107); Glucose 184 mg/dL (83-110); Potassium 4.4 mmol/L (3.5-5.1); Sodium 139 mmol/L (136-145)
[2020-11-07] MEDS: Carvedilol 3.125 MG TAB PO SCH ×2 (09:08→17:26)
[2020-11-07] MEDS: Acetaminophen 650 MG/20.3 ML UDCUP PER TUBE PRN (09:08)
[2020-11-07] MEDS: Cefdinir 300 MG CAP PO SCH ×2 (09:09→21:25)
[2020-11-07] MEDS: methylPREDNISolone Sod Succ 40 MG VIAL IVP SCH ×2 (09:09→21:25)
[2020-11-07] MEDS: Pantoprazole 40 MG GRANULES PACKET PO SCH (09:11)
[2020-11-07] MEDS: Albuterol Sulfate 2.5 mg/0.5 ml Neb ONE (14:56)
[2020-11-07] MEDS: Warfarin Sodium 5 MG TAB PO SCH (17:55)
[2020-11-08 04:23] LABS: Anion Gap 12 mmol/L (10-20); BUN (Urea Nitrogen) 37 mg/dL (8.4-25.7); Calc. Creatinine Clearance 86 mL/min (70-130); Carbon Dioxide 34 mmol/L (23-31); Chloride 98 mmol/L (98-107); Glucose 185 mg/dL (83-110); Potassium 4.5 mmol/L (3.5-5.1); Sodium 139 mmol/L (136-145)
[2020-11-08 04:41] LABS: Band 16 % (5-11); Hemoglobin 10.6 g/dL (14.0-18.0); Lymphocytes 3 % (21-51); MDiff Complete? YES; Mean Corpuscular HGB CONC 32.3 g/dL (32.0-36.0); Mean Corpuscular Hemoglobin 30.5 pg (27.0-31.0); Mean Corpuscular Volume 94.3 fL (78.0-98.0); Mean Platelet Volume 8.1 fL (7.4-10.4); Monocytes 4 % (0-10); Neutrophil 77 % (42-75); Platelet Count 147 thou/uL (130-400); White Blood Cell (WBC) Count 12.3 thou/uL (4.8-10.8)
[2020-11-08] MEDS: Carvedilol 3.125 MG TAB PO SCH ×2 (09:55→16:38)
[2020-11-08] MEDS: Pantoprazole 40 MG GRANULES PACKET PO SCH (09:55)
[2020-11-08] MEDS: Cefdinir 300 MG CAP PO SCH ×2 (09:55→19:56)
[2020-11-08] MEDS: methylPREDNISolone Sod Succ 40 MG VIAL IVP SCH ×2 (09:56→19:56)
[2020-11-08] MEDS: Acetaminophen 650 MG/20.3 ML UDCUP PER TUBE PRN (10:17)
[2020-11-08 16:02] LABS: Prothrombin Time 47.9 sec (12.0-14.7)
[2020-11-09 04:58] LABS: Anion Gap 12 mmol/L (10-20); BUN (Urea Nitrogen) 29 mg/dL (8.4-25.7); Calc. Creatinine Clearance 93 mL/min (70-130); Calcium 8.5 mg/dL (7.8-10.44); Carbon Dioxide 33 mmol/L (23-31); Chloride 97 mmol/L (98-107); Glucose 240 mg/dL (83-110); Potassium 4.9 mmol/L (3.5-5.1); Sodium 137 mmol/L (136-145)
[2020-11-09 05:20] LABS: INR-International Normal Ratio 4.4
[2020-11-09 06:17] LABS: Band 29 % (5-11); Lymphocytes 2 % (21-51); MDiff Complete? YES; Mean Corpuscular HGB CONC 31.6 g/dL (32.0-36.0); Mean Corpuscular Volume 94.9 fL (78.0-98.0); Mean Platelet Volume 8.7 fL (7.4-10.4); Monocytes 2 % (0-10); Neutrophil 67 % (42-75); Platelet Count 148 thou/uL (130-400); Red Blood Cell (RBC) Count 3.34 mill/uL (4.70-6.10); White Blood Cell (WBC) Count 7.9 thou/uL (4.8-10.8)
[2020-11-09] MEDS: methylPREDNISolone Sod Succ 40 MG VIAL IVP SCH (09:14)
[2020-11-09] MEDS: Pantoprazole 40 MG GRANULES PACKET PO SCH (09:14)
[2020-11-09] MEDS: Cefdinir 300 MG CAP PO SCH ×2 (09:14→20:45)
[2020-11-09] MEDS: Carvedilol 3.125 MG TAB PO SCH ×2 (09:14→17:03)
[2020-11-09] MEDS: Acetaminophen 650 MG/20.3 ML UDCUP PER TUBE PRN (21:00)
[2020-11-10 04:32] LABS: INR-International Normal Ratio 3.9
[2020-11-10 04:48] LABS: Anion Gap 14 mmol/L (10-20); BUN (Urea Nitrogen) 26 mg/dL (8.4-25.7); Calc. Creatinine Clearance 103 mL/min (70-130); Calcium 8.6 mg/dL (7.8-10.44); Carbon Dioxide 30 mmol/L (23-31); Chloride 96 mmol/L (98-107); Glucose 119 mg/dL (83-110); Potassium 4.5 mmol/L (3.5-5.1); Sodium 135 mmol/L (136-145)
[2020-11-10 05:11] LABS: Band 30 % (5-11); Hemoglobin 10.5 g/dL (14.0-18.0); Lymphocytes 5 % (21-51); MDiff Complete? YES; Mean Corpuscular HGB CONC 31.9 g/dL (32.0-36.0); Mean Corpuscular Hemoglobin 30.4 pg (27.0-31.0); Mean Corpuscular Volume 95.3 fL (78.0-98.0); Mean Platelet Volume 8.1 fL (7.4-10.4); Monocytes 4 % (0-10); Neutrophil 61 % (42-75); Platelet Count 143 thou/uL (130-400); RBC Distribution Width 12.9 % (11.5-14.5); Red Blood Cell (RBC) Count 3.47 mill/uL (4.70-6.10); White Blood Cell (WBC) Count 7.8 thou/uL (4.8-10.8)
[2020-11-10] MEDS: predniSONE 20 MG TAB PO SCH (09:43)
[2020-11-10] MEDS: Cefdinir 300 MG CAP PO SCH ×2 (09:43→21:08)
[2020-11-10] MEDS: Pantoprazole 40 MG GRANULES PACKET PO SCH (09:44)
[2020-11-10] MEDS: Carvedilol 3.125 MG TAB PO SCH ×2 (09:44→17:31)
[2020-11-10] MEDS ORDERED: Scopolamine 1.5 mg/72 hour Patch TD SCH (12:00)
[2020-11-10] MEDS ORDERED: Warfarin Sodium 5 MG TAB PO SCH (17:00)
[2020-11-10] MEDS: Acetaminophen 650 MG/20.3 ML UDCUP PER TUBE PRN (17:43)
[2020-11-11 04:46] LABS: Anion Gap 14 mmol/L (10-20); BUN (Urea Nitrogen) 28 mg/dL (8.4-25.7); Calc. Creatinine Clearance 109 mL/min (70-130); Calcium 8.2 mg/dL (7.8-10.44); Carbon Dioxide 28 mmol/L (23-31); Chloride 96 mmol/L (98-107); Glucose 100 mg/dL (83-110); Potassium 4.1 mmol/L (3.5-5.1); Sodium 134 mmol/L (136-145)
[2020-11-11 05:22] LABS: INR-International Normal Ratio 2.8; Prothrombin Time 30.3 sec (12.0-14.7)
[2020-11-11 05:23] LABS: Band 29 % (5-11); Hemoglobin 9.7 g/dL (14.0-18.0); Lymphocytes 11 % (21-51); MDiff Complete? YES; Mean Corpuscular HGB CONC 31.1 g/dL (32.0-36.0); Mean Corpuscular Hemoglobin 29.9 pg (27.0-31.0); Mean Corpuscular Volume 96.1 fL (78.0-98.0); Monocytes 4 % (0-10); Neutrophil 56 % (42-75); Platelet Count 182 thou/uL (130-400); RBC Distribution Width 12.8 % (11.5-14.5); Red Blood Cell (RBC) Count 3.25 mill/uL (4.70-6.10); White Blood Cell (WBC) Count 7.1 thou/uL (4.8-10.8)
[2020-11-11] MEDS: predniSONE 20 MG TAB PO SCH (08:30)
[2020-11-11] MEDS: Carvedilol 3.125 MG TAB PO SCH ×2 (08:31→18:35)
[2020-11-11] MEDS: Pantoprazole 40 MG GRANULES PACKET PO SCH (08:31)
[2020-11-11] MEDS: Cefdinir 300 MG CAP PO SCH (08:31)
[2020-11-11 11:39] LABS: Actual Bicarbonate (HCO3a) 32.7 mEq/L (22-28); Analyzer IN Cardio OR; CO2 Tension 41.2 mmHg (35.0-45.0); Calcium, Ionized (arterial) 1.19 mmol/L (1.12-1.30); Carboxyhemoglobin (COHb) 0.9 gm% (0.0-3.0); Hemoglobin (Hb) 12.3 g/dL (14.0-18.0); O2 Tension (PaO2), arterial 48.2 mmHg (> 70.0); Potassium - ABG Lab 4.27 mmol/L (3.70-5.30); pH, Arterial 7.52 (7.35-7.45)
[2020-11-11 11:40] LABS: Puncture Site LRA
[2020-11-11] MEDS ORDERED: Furosemide 20 MG/2 ML VIAL SLOW IVP SCH (12:15)
[2020-11-11] MEDS: Acetaminophen 650 MG/20.3 ML UDCUP PER TUBE PRN ×2 (12:29→20:25)
[2020-11-11] MEDS: Piperacillin/Tazobactam 3.375 GM in Sodium Chloride 0.9% 100 ML IVPB SCH ×2 (12:29→20:15)
[2020-11-11] MEDS ORDERED: Hyoscyamine Sulfate SL 0.125 mg Tablet PO PRN (13:42)
[2020-11-11] MEDS: Scopolamine 1.5 mg/72 hour Patch TD SCH (14:26)
[2020-11-11] MEDS ORDERED: Warfarin Sodium 2.5 MG TAB PO SCH (17:00)
[2020-11-12] MEDS: Piperacillin/Tazobactam 3.375 GM in Sodium Chloride 0.9% 100 ML IVPB SCH ×3 (05:37→19:56)
[2020-11-12 06:20] LABS: INR-International Normal Ratio 3.3
[2020-11-12 06:27] LABS: Hemoglobin 9.7 g/dL (14.0-18.0); Mean Corpuscular Hemoglobin 30.2 pg (27.0-31.0); Mean Corpuscular Volume 97.3 fL (78.0-98.0); Mean Platelet Volume 8.2 fL (7.4-10.4); Platelet Count 180 thou/uL (130-400); RBC Distribution Width 12.9 % (11.5-14.5); White Blood Cell (WBC) Count 6.8 thou/uL (4.8-10.8)
[2020-11-12 06:38] LABS: Anion Gap 10 mmol/L (10-20); BUN (Urea Nitrogen) 29 mg/dL (8.4-25.7); Calc. Creatinine Clearance 107 mL/min (70-130); Calcium 8.9 mg/dL (7.8-10.44); Carbon Dioxide 37 mmol/L (23-31); Chloride 97 mmol/L (98-107); Glucose 115 mg/dL (83-110); Potassium 3.9 mmol/L (3.5-5.1); Sodium 140 mmol/L (136-145)
[2020-11-12 06:53] LABS: Band 49 % (5-11); Lymphocytes 6 % (21-51); MDiff Complete? YES; Monocytes 4 % (0-10); Neutrophil 41 % (42-75); Nucleated RBC 1 % (0); Platelet Morphology Comment Appears Adequate; Polychromasia SLIGHT = 2-3 cells (100X) (0-2/hpf)
[2020-11-12] MEDS: Carvedilol 3.125 MG TAB PO SCH ×2 (08:50→17:27)
[2020-11-12] MEDS: Pantoprazole 40 MG GRANULES PACKET PO SCH (08:50)
[2020-11-12] MEDS: predniSONE 20 MG TAB PO SCH (08:50)
[2020-11-12] MEDS ORDERED: Warfarin Sodium 2.5 MG TAB PO SCH (17:00)
[2020-11-13] MEDS ORDERED: traZODone HCl 50 MG TAB PER TUBE SCH (01:45)
[2020-11-13] MEDS: Piperacillin/Tazobactam 3.375 GM in Sodium Chloride 0.9% 100 ML IVPB SCH ×3 (04:39→20:41)
[2020-11-13 05:07] LABS: Hemoglobin 9.8 g/dL (14.0-18.0); Mean Corpuscular HGB CONC 31.3 g/dL (32.0-36.0); Mean Corpuscular Hemoglobin 29.9 pg (27.0-31.0); Mean Corpuscular Volume 95.5 fL (78.0-98.0); Platelet Count 185 thou/uL (130-400); RBC Distribution Width 12.8 % (11.5-14.5); Red Blood Cell (RBC) Count 3.27 mill/uL (4.70-6.10); White Blood Cell (WBC) Count 9.8 thou/uL (4.8-10.8)
[2020-11-13 05:09] LABS: INR-International Normal Ratio 2.5; Prothrombin Time 27.2 sec (12.0-14.7)
[2020-11-13 05:20] LABS: BUN (Urea Nitrogen) 25 mg/dL (8.4-25.7); Calc. Creatinine Clearance 109 mL/min (70-130); Calcium 9.2 mg/dL (7.8-10.44); Glucose 107 mg/dL (83-110)
[2020-11-13 05:23] LABS: Band 44 % (5-11); Lymphocytes 5 % (21-51); MDiff Complete? YES; Monocytes 4 % (0-10); Neutrophil 47 % (42-75); Platelet Morphology Comment Appears Adequate
[2020-11-13 05:29] LABS: Anion Gap 15 mmol/L (10-20); Carbon Dioxide 32 mmol/L (23-31); Chloride 100 mmol/L (98-107); Potassium 4.1 mmol/L (3.5-5.1); Sodium 143 mmol/L (136-145)
[2020-11-13] MEDS: Pantoprazole 40 MG GRANULES PACKET PO SCH (08:51)
[2020-11-13] MEDS: Carvedilol 3.125 MG TAB PO SCH ×2 (08:51→16:58)
[2020-11-13] MEDS: predniSONE 20 MG TAB PO SCH (08:51)
[2020-11-13] MEDS ORDERED: BIOTENE MOUTH SPRAY 44.3 ML MM PRN (10:31)
[2020-11-13] MEDS ORDERED: Warfarin Sodium 2 MG TAB PO SCH (17:00)
[2020-11-13] MEDS: Acetaminophen 650 MG/20.3 ML UDCUP PER TUBE PRN (23:10)
[2020-11-13] MEDS ORDERED: diphenhydrAMINE 12.5 MG/5 ML UDCUP PO PRN (23:13)
[2020-11-14] MEDS: Piperacillin/Tazobactam 3.375 GM in Sodium Chloride 0.9% 100 ML IVPB SCH ×2 (06:08→14:04)
[2020-11-14 06:20] LABS: INR-International Normal Ratio 2.2; Prothrombin Time 24.4 sec (12.0-14.7)
[2020-11-14 06:26] LABS: Hemoglobin 9.6 g/dL (14.0-18.0); Lymphocytes 4 % (21-51); MDiff Complete? YES; Mean Corpuscular HGB CONC 31.7 g/dL (32.0-36.0); Mean Corpuscular Hemoglobin 30.8 pg (27.0-31.0); Mean Corpuscular Volume 97.1 fL (78.0-98.0); Neutrophil 96 % (42-75); Platelet Count 179 thou/uL (130-400); Platelet Morphology Comment Appears Adequate; RBC Distribution Width 12.8 % (11.5-14.5); Red Blood Cell (RBC) Count 3.13 mill/uL (4.70-6.10); White Blood Cell (WBC) Count 8.9 thou/uL (4.8-10.8)
[2020-11-14 06:39] LABS: Anion Gap 9 mmol/L (10-20); BUN (Urea Nitrogen) 23 mg/dL (8.4-25.7); Calc. Creatinine Clearance 107 mL/min (70-130); Carbon Dioxide 37 mmol/L (23-31); Chloride 103 mmol/L (98-107); Glucose 98 mg/dL (83-110); Potassium 4.1 mmol/L (3.5-5.1); Sodium 145 mmol/L (136-145)
[2020-11-14 07:18] VITALS: BMI 21.2
[2020-11-14] MEDS: predniSONE 20 MG TAB PO SCH (08:24)
[2020-11-14] MEDS: Carvedilol 3.125 MG TAB PO SCH (08:24)
[2020-11-14] MEDS: Pantoprazole 40 MG GRANULES PACKET PO SCH (08:24)
[2020-11-14 11:48] VITALS: BP 97/67; TEMP 97.6
[2020-11-14] MEDS: Scopolamine 1.5 mg/72 hour Patch TD SCH (14:04)
== END 2020-11-14 14:45 | DRG 4 ==
LOC: ERS 21:35 → OBSVTOIN 10-28 05:08 → ERHOLD 10-28 05:08 → T4-A 10-28 16:20 → PACU-TCU 10-29 01:54 → IMCU/EMU 10-29 17:57 → 2NO 11-07 15:19 → T4-A 11-11 17:02
PROVIDERS: ADMIT Student in an Organized Health Care Education/Training Program; ATTEND Internal Medicine
PROC: 0BH17EZ Insertion of Endotracheal Airway into Trachea, Via Natural or Artificial Opening (ICD-10-PCS; 2020-10-28)
PROC: 3E033XZ Introduction of Vasopressor into Peripheral Vein, Percutaneous Approach (ICD-10-PCS; 2020-10-28)
PROC: 5A12012 Performance of Cardiac Output, Single, Manual (ICD-10-PCS; 2020-10-28)
PROC: 5A1945Z Respiratory Ventilation, 24-96 Consecutive Hours (ICD-10-PCS; 2020-10-29)
PROC: 02HV33Z Insertion of Infusion Device into Superior Vena Cava, Percutaneous Approach (ICD-10-PCS; 2020-10-29)
PROC: B548ZZA Ultrasonography of Superior Vena Cava, Guidance (ICD-10-PCS; 2020-10-29)
PROC: 5A09457 Assistance with Respiratory Ventilation, 24-96 Consecutive Hours, Continuous Positive Airway Pressure (ICD-10-PCS; 2020-10-30)
PROC: 0B110F4 Bypass Trachea to Cutaneous with Tracheostomy Device, Open Approach (ICD-10-PCS; principal; 2020-11-05)
DX: J15.1 Pneumonia due to Pseudomonas (principal); J96.01 Acute respiratory failure with hypoxia; I46.9 Cardiac arrest, cause unspecified; R64 Cachexia; D68.32 Hemorrhagic disorder due to extrinsic circulating anticoagulants; J44.0 Chronic obstructive pulmonary disease with (acute) lower respiratory infection; E87.1 Hypo-osmolality and hyponatremia; J69.0 Pneumonitis due to inhalation of food and vomit; Z20.822 Contact with and (suspected) exposure to COVID-19; I10 Essential (primary) hypertension; I48.0 Paroxysmal atrial fibrillation; T45.515A Adverse effect of anticoagulants, initial encounter; R13.10 Dysphagia, unspecified; J38.6 Stenosis of larynx; Y84.2 Radiological procedure and radiotherapy as the cause of abnormal reaction of the patient, or of later complication, without mention of misadventure at the time of the procedure; C10.9 Malignant neoplasm of oropharynx, unspecified; D64.9 Anemia, unspecified; Z85.810 Personal history of malignant neoplasm of tongue; Z90.49 Acquired absence of other specified parts of digestive tract; Z85.01 Personal history of malignant neoplasm of esophagus; Z92.3 Personal history of irradiation; Z79.01 Long term (current) use of anticoagulants; Z79.899 Other long term (current) drug therapy; Z68.21 Body mass index [BMI] 21.0-21.9, adult; Z85.21 Personal history of malignant neoplasm of larynx; Z93.1 Gastrostomy status; Z78.1 Physical restraint status
CPT/HCPCS: 31624; 36415; 36416; 36600; 71045; 80048; 80053; 80202; 81003; 82533; 82805; 83605; 83735; 83880; 84484; 85007; 85025; 85027; 85610; 85730; 87040; 87070; 87077; 87086; 87186; 87205; 87635; 89220; 92950; 93005; 93010; 94002; 94003; 94640; 94660; G0378; J0171; J0456; J0461; J0696; J1720; J1940; J2060; J2185; J2270; J2405; J2543; J2704; J2920; J3010; J3370; J3490; J7050; J7512; J7611; J7620; P9047; Q0163; U0003; U0005

== ENCOUNTER 2020-11-15 12:59 | Emergency (ER) | payer MEDICARE ==
[2020-11-15] MEDS ORDERED: Cefepime 2 GM VIAL ONE (13:21)
[2020-11-15] MEDS ORDERED: Vancomycin 1 GM/200 ML BAG ONE (13:22)
[2020-11-15] MEDS ORDERED: fentaNYL Citrate/PF 2,000 MCG in Sodium Chloride 0.9% 60 ML IV SCH (13:30)
[2020-11-15 13:43] LABS: Actual Bicarbonate (HCO3a) 35.7 mEq/L (22-28); Analyzer IN Cardio ER; Base Excess (BEa) 8.7 mEq/L (-2.0 to +3.0); Carboxyhemoglobin (COHb) 0.4 gm% (0.0-3.0); Hemoglobin (Hb) 11.2 g/dL (14.0-18.0); Potassium - ABG Lab 4.85 mmol/L (3.70-5.30); pH, Arterial 7.38 (7.35-7.45)
[2020-11-15 13:46] LABS: CO2 Tension 61.8 mmHg (35.0-45.0)
[2020-11-15 13:47] LABS: Puncture Site RBA
[2020-11-15] MEDS ORDERED: Fentanyl 100 MCG/2 ML VIAL ONE ×2 (13:50→14:45)
[2020-11-15 13:53] LABS: #Lymphocytes 0.3 thou/uL (1.20-3.40); #Monocytes 0.3 thou/uL (0.11-0.59); #Neutrophils 9.5 thou/uL (1.40-6.50); %Eosinophils 0.1 % (0.0-10.0); %Lymphocytes 2.6 % (21.0-51.0); %Monocytes 2.8 % (0.0-10.0); %Neutrophils 94.6 % (42.0-75.0); Hemoglobin 9.5 g/dL (14.0-18.0); Mean Corpuscular HGB CONC 31.2 g/dL (32.0-36.0); Mean Corpuscular Hemoglobin 30.5 pg (27.0-31.0); Mean Corpuscular Volume 97.7 fL (78.0-98.0); Mean Platelet Volume 8.3 fL (7.4-10.4); Platelet Count 183 thou/uL (130-400); White Blood Cell (WBC) Count 10.1 thou/uL (4.8-10.8)
[2020-11-15 14:12] LABS: INR-International Normal Ratio 1.6; PTT 33.5 sec (22.9-36.1); Prothrombin Time 19.7 sec (12.0-14.7)
[2020-11-15 14:15] LABS: ALT (SGPT) 68 U/L (8-55); AST (SGOT) 33 U/L (5-34); Albumin 2.3 g/dL (3.4-4.8); Alkaline Phosphatase 101 U/L (40-110); Anion Gap 10 mmol/L (10-20); BUN (Urea Nitrogen) 26 mg/dL (8.4-25.7); Bilirubin, Total 0.6 mg/dL (0.2-1.2); Calc. Creatinine Clearance 0 mL/min (70-130); Calcium 8.8 mg/dL (7.8-10.44); Carbon Dioxide 37 mmol/L (23-31); Chloride 104 mmol/L (98-107); Glucose 128 mg/dL (83-110); Potassium 5.1 mmol/L (3.5-5.1); Protein, Total 5.3 g/dL (5.8-8.1); Sodium 146 mmol/L (136-145)
[2020-11-15] MEDS ORDERED: Morphine 4 MG/ML VIAL ONE (15:09)
== END 2020-11-15 15:30 | disposition expired ==
LOC: ERS 12:59
DX: I46.9 Cardiac arrest, cause unspecified (principal); A41.9 Sepsis, unspecified organism; C02.9 Malignant neoplasm of tongue, unspecified; I10 Essential (primary) hypertension
CPT/HCPCS: 36600; 71045; 80053; 82805; 83605; 85025; 85610; 85730; 87040 ×2; 94002; 94760; J3010; 36556; 96365; 96375; 96376; 99292; J0692; J1956; J2270; J3370; J3490